=== PATIENT | female | born 1990 ===

== ENCOUNTER 2017-01-21 21:27 | Emergency (ER) | payer SELFPAY ==
[~2017-01-21] VITALS: Ht 165.1 cm; Wt 100.7 kg
[2017-01-21 21:29] VITALS: BP 141/98
== END 2017-01-22 00:08 | disposition home or self-care (01) ==
LOC: ED 23:30
DX: R51 Headache (principal); Z53.21 Procedure and treatment not carried out due to patient leaving prior to being seen by health care provider